=== PATIENT | female | born 1990 | race Caucasian/White ===

== ENCOUNTER 2024-02-22 02:29 | Emergency (ER) | payer MEDICAID ==
[~2024-02-22] VITALS: Ht 167.6 cm; Wt 84.0 kg
[2024-02-22] MEDS: AMOXICILLIN/POTASSIUM CLAVULANATE 875/125MG TAB PO ONE (03:30)
[2024-02-22] MEDS: GUAIFENESIN 600MG ER TABLET PO ONE (03:30)
[2024-02-22] MEDS ORDERED: GUAI600T26 MT (03:31)
[2024-02-22] MEDS ORDERED: IBUP-2029 MT (03:31)
[2024-02-22] MEDS ORDERED: AMOX1TAB16 MT (03:31)
[2024-02-22] MEDS: IBUPROFEN 600MG TABLET PO ONE (03:45)
[2024-02-22 04:32] VITALS: BP 128/72; PULSE 92; RESP 14; TEMP 98.3
== END 2024-02-22 04:33 | disposition home or self-care (01) ==
LOC: ER 02:45
DX: H66.92 Otitis media, unspecified, left ear (principal); Z00.00 Encounter for general adult medical examination without abnormal findings
CPT/HCPCS: 99283